=== PATIENT | female | born 1985 | race Caucasian/White ===

== ENCOUNTER → 2017-04-08 | Outpatient (REF) | payer SELFPAY | LOC: M LAB REF 14:00 | PROVIDERS: ATTEND Physician Assistant Medical | DX: L72.9 Follicular cyst of the skin and subcutaneous tissue, unspecified (principal) ==

== ENCOUNTER → 2021-08-22 | Outpatient (REF) | payer SELFPAY ==
[2021-08-22 19:53] LABS: RSV AMPLIFICATION NEGATIVE (NEGATIVE)
== END ==
LOC: M LAB REF 18:47
PROVIDERS: ATTEND Physician Assistant
DX: R50.9 Fever, unspecified (principal); R05.9 Cough, unspecified

== ENCOUNTER 2022-05-12 17:15 | Emergency (ER) | payer OTHER, SELFPAY ==
[~2022-05-12] VITALS: Ht 157.5 cm; Wt 104.5 kg
[2022-05-12 17:15] VITALS: BP 127/84
[2022-05-12 18:08] LABS: BASO # 0.1 10^3/uL (0.0-0.2); BASO % 0.4 % (0.0-1.0); EOS # 0.3 10^3/uL (0.0-0.5); EOS % 1.4 % (0.0-3.0); HEMATOCRIT 37.7 % (36.0-47.0); HEMOGLOBIN 11.4 g/dl (12.0-15.5); LYMPH # 1.6 10^3/uL (1.5-5.0); LYMPH % 7.7 % (24.0-44.0); MEAN CORPUSCULAR HEMOGLOBIN 22.3 pg (27.0-33.0); MEAN CORPUSCULAR HGB CONC 30.2 g/dl (32.0-36.5); MEAN CORPUSCULAR VOLUME 73.6 fl (80.0-96.0); MONO % 4.8 % (2.0-8.0); NEUTROPHILS # 17.2 10^3/uL (1.5-8.5); NEUTROPHILS % 85.1 % (36.0-66.0); PLATELET COUNT, AUTOMATED 405 10^3/uL (150-450); RED BLOOD COUNT 5.12 10^6/uL (4.00-5.40); WHITE BLOOD COUNT 20.2 10^3/uL (4.0-10.0)
[2022-05-12 18:24] LABS: HCG, SERUM QUALITATIVE NEGATIVE (NEGATIVE)
[2022-05-12 18:32] LABS: ALBUMIN 3.9 GM/DL (3.2-5.2); ALT/SGPT 24 U/L (12-78); BILIRUBIN,DIRECT < 0.1 MG/DL (0.0-0.2); BILIRUBIN,TOTAL 0.3 MG/DL (0.2-1.0); BLOOD UREA NITROGEN 10 MG/DL (7-18); CALCIUM LEVEL 9.2 MG/DL (8.5-10.1); CARBON DIOXIDE LEVEL 21 MEQ/L (21-32); CHLORIDE LEVEL 108 MEQ/L (98-107); CREATININE FOR GFR 0.83 MG/DL (0.55-1.30); GLOMERULAR FILTRATION RATE > 60.0 (>60); GLUCOSE, FASTING 120 MG/DL (70-100); LIPASE 152 U/L (73-393); POTASSIUM SERUM 3.8 MEQ/L (3.5-5.1); SODIUM LEVEL 139 MEQ/L (136-145); TOTAL PROTEIN 7.5 GM/DL (6.4-8.2)
[2022-05-12] MEDS ORDERED: KETOROLAC 30 MG/ML 1ML VIAL IV ONE (19:45)
[2022-05-12] MEDS ORDERED: NS 1,000 ML IV ONE (19:45)
[2022-05-12] MEDS ORDERED: ONDANSETRON 4MG 2ML VIAL IV ONE (19:45)
[2022-05-12] MEDS ORDERED: ISOVUE-370 76% 100ML VIAL As Ordered ONE (19:46)
[2022-05-12] MEDS ORDERED: cefTRIAXone SOD 2 GM in D5W MINI-BAG PLUS 50 ML IV ONE (22:05)
[2022-05-12] MEDS ORDERED: ONDA4TAB6 PO (22:07)
[2022-05-12] MEDS ORDERED: AMOX875T2 PO (22:07)
[2022-05-13] MEDS ORDERED: ACET-907 PO (11:42)
[2022-05-13] MEDS ORDERED: AMOX875T2 PO (11:42)
[2022-05-13] MEDS ORDERED: ONDA4TAB6 PO (11:42)
== END 2022-05-12 22:54 | disposition home or self-care (01) ==
LOC: M ED 17:15
DX: K37 Unspecified appendicitis (principal); E66.9 Obesity, unspecified; F17.210 Nicotine dependence, cigarettes, uncomplicated; Z88.0 Allergy status to penicillin; Z98.890 Other specified postprocedural states
CPT/HCPCS: 74177; 80048; 80076; 83690; 84703; 85025; 96365; 96375; 99284; J0696; J1885; J2405; Q9967

== ENCOUNTER 2022-05-13 09:40 | Day surgery (SDC) | payer OTHER ==
[~2022-05-13] VITALS: Ht 157.5 cm; Wt 104.5 kg
[~2022-05-13 09:40] MED LIST: AMOX875T2 PO; ONDA4TAB6 PO
[2022-05-13 10:20] LABS: BASO % 0.2 % (0.0-1.0); EOS # 0.1 10^3/uL (0.0-0.5); EOS % 0.3 % (0.0-3.0); HEMATOCRIT 35.5 % (36.0-47.0); LYMPH # 1.5 10^3/uL (1.5-5.0); MEAN CORPUSCULAR VOLUME 74.1 fl (80.0-96.0); MONO # 1.1 10^3/uL (0.0-0.8); MONO % 5.9 % (2.0-8.0); NEUTROPHILS # 15.5 10^3/uL (1.5-8.5); NEUTROPHILS % 84.9 % (36.0-66.0); PLATELET COUNT, AUTOMATED 374 10^3/uL (150-450); RED BLOOD COUNT 4.79 10^6/uL (4.00-5.40); WHITE BLOOD COUNT 18.3 10^3/uL (4.0-10.0)
[2022-05-13] MEDS ORDERED: MORPHINE 2 MG/ML 1ML VIAL IV ONE (10:20)
[2022-05-13] MEDS ORDERED: ONDANSETRON 4MG 2ML VIAL IV ONE (10:20)
[2022-05-13] MEDS ORDERED: PIPERACILLIN/TAZOBACTAM SOD 3.375 GM in D5W MINI-BAG PLUS 50 ML IV ONE (10:20)
[2022-05-13] MEDS ORDERED: NS 1,000 ML IV ONE (10:20)
[2022-05-13 10:47] LABS: ALBUMIN 3.6 GM/DL (3.2-5.2); BILIRUBIN,DIRECT 0.3 MG/DL (0.0-0.2); BILIRUBIN,TOTAL 0.5 MG/DL (0.2-1.0); TOTAL PROTEIN 7.3 GM/DL (6.4-8.2)
[2022-05-13 11:04] LABS: RSV AMPLIFICATION NEGATIVE (NEGATIVE)
[2022-05-13] MEDS ORDERED: AMOX875T2 PO (11:42)
[2022-05-13] MEDS ORDERED: ACET-907 PO (11:42)
[2022-05-13] MEDS ORDERED: ONDA4TAB6 PO (11:42)
[2022-05-13] MEDS ORDERED: HOME MED LIST COMPLETE! XX SCH (11:45)
[2022-05-13 11:49] LABS: BLOOD UREA NITROGEN 7 MG/DL (7-18); CALCIUM LEVEL 8.7 MG/DL (8.5-10.1); CARBON DIOXIDE LEVEL 23 MEQ/L (21-32); CHLORIDE LEVEL 107 MEQ/L (98-107); CREATININE FOR GFR 0.71 MG/DL (0.55-1.30); GLOMERULAR FILTRATION RATE > 60.0 (>60); GLUCOSE, FASTING 103 MG/DL (70-100); SODIUM LEVEL 141 MEQ/L (136-145)
[2022-05-13] MEDS ORDERED: BUPIVACAINE HCL 0.25% 10ML VIAL As Ordered ONE (12:57)
[2022-05-13] MEDS ORDERED: LIDOCAINE 1% SDV 30ML VIAL As Ordered ONE (12:57)
[2022-05-13] MEDS ORDERED: BUPIVACAINE HCL 0.25% 30ML VIAL As Ordered ONE (12:58)
[2022-05-13] MEDS ORDERED: KETOROLAC 30 MG/ML 1ML VIAL IV ONE (14:45)
[2022-05-13 17:00] VITALS: BP 112/57
[2022-05-13] MEDS ORDERED: propofoL 200 MG/20 ML VIAL As Ordered ONE (17:40)
[2022-05-13] MEDS ORDERED: ONDANSETRON 4MG 2ML VIAL As Ordered ONE (17:41)
[2022-05-13] MEDS ORDERED: ROCURONIUM BROMIDE 50 MG/5 ML VIAL As Ordered ONE ×2 (17:41→18:58)
[2022-05-13] MEDS ORDERED: fentaNYL 100 MCG/2 ML INJECTION As Ordered ONE ×2 (17:41→18:36)
[2022-05-13] MEDS ORDERED: dexameTHASONE 4 MG/ML 1ML VIAL (J1100 PER 1MG) As Ordered ONE (17:41)
[2022-05-13] MEDS ORDERED: MIDAZOLAM INJ 2MG/2ML VIAL (J2250 PER 1MG) As Ordered ONE (17:41)
[2022-05-13] MEDS ORDERED: ZOSYN 3.375GM VIAL As Ordered ONE (18:14)
[2022-05-13] MEDS ORDERED: ACETAMINOPHEN 1000MG 100ML IV BTL (OFIRMEV) (J0131 PER 10MG) As Ordered ONE (19:18)
[2022-05-13] MEDS ORDERED: SUGAMMADEX SODIUM 500 MG/5 ML VIAL (BRIDION) As Ordered ONE (19:29)
[2022-05-13] MEDS ORDERED: LR 1,000 ML IV SCH ×2 (19:45→20:30)
[2022-05-13] MEDS ORDERED: ONDANSETRON 4MG 2ML VIAL IV PRN ×2 (19:45→20:30)
[2022-05-13] MEDS ORDERED: PERCOCET 5MG/325MG TAB PO PRN ×2 (19:45)
[2022-05-13] MEDS ORDERED: ACETAMINOPHEN TAB 650MG DOSE (2X325MG) PO PRN (19:45)
[2022-05-13] MEDS ORDERED: fentaNYL 100 MCG/2 ML INJECTION IV PRN (20:30)
[2022-05-13] MEDS ORDERED: oxyCODONE 5MG TAB PO PRN (20:30)
[2022-05-13 21:08] VITALS: BP 141/89
[2022-05-13] MEDS: PIPERACILLIN/TAZOBACTAM SOD 3.375 GM in D5W MINI-BAG PLUS 50 ML IV SCH (21:28)
[2022-05-13] MEDS: KETOROLAC 30 MG/ML 1ML VIAL IV SCH (21:28)
[2022-05-13 21:30] VITALS: BP 105/45
[2022-05-13 22:00] VITALS: BP 107/48
[2022-05-13 23:00] VITALS: BP 106/49
[2022-05-14] VITALS: BP 112/71
[2022-05-14 01:00] VITALS: BP 114/55
[2022-05-14] MEDS: PIPERACILLIN/TAZOBACTAM SOD 3.375 GM in D5W MINI-BAG PLUS 50 ML IV SCH ×4 (03:09→20:45)
[2022-05-14] MEDS: KETOROLAC 30 MG/ML 1ML VIAL IV SCH ×4 (03:10→20:45)
[2022-05-14 05:41] VITALS: BP 111/56
[2022-05-14 06:28] LABS: BASO % 0.1 % (0.0-1.0); HEMATOCRIT 32.5 % (36.0-47.0); HEMOGLOBIN 9.6 g/dl (12.0-15.5); LYMPH # 0.7 10^3/uL (1.5-5.0); LYMPH % 3.6 % (24.0-44.0); MEAN CORPUSCULAR HEMOGLOBIN 21.9 pg (27.0-33.0); MEAN CORPUSCULAR HGB CONC 29.5 g/dl (32.0-36.5); MEAN CORPUSCULAR VOLUME 74.2 fl (80.0-96.0); MONO # 0.7 10^3/uL (0.0-0.8); MONO % 3.7 % (2.0-8.0); NEUTROPHILS # 18.6 10^3/uL (1.5-8.5); NEUTROPHILS % 92.1 % (36.0-66.0); PLATELET COUNT, AUTOMATED 318 10^3/uL (150-450); RED BLOOD COUNT 4.38 10^6/uL (4.00-5.40); WHITE BLOOD COUNT 20.2 10^3/uL (4.0-10.0)
[2022-05-14 06:59] LABS: BLOOD UREA NITROGEN 8 MG/DL (7-18); CALCIUM LEVEL 8.6 MG/DL (8.5-10.1); CARBON DIOXIDE LEVEL 24 MEQ/L (21-32); CHLORIDE LEVEL 105 MEQ/L (98-107); CREATININE FOR GFR 0.69 MG/DL (0.55-1.30); GLOMERULAR FILTRATION RATE > 60.0 (>60); GLUCOSE, FASTING 125 MG/DL (70-100); POTASSIUM SERUM 4.1 MEQ/L (3.5-5.1); SODIUM LEVEL 136 MEQ/L (136-145)
[2022-05-14] MEDS: PANTOPRAZOLE 40MG VIAL IV SCH (08:15)
[2022-05-14] MEDS: ENOXAPARIN 40MG/0.4ML SYRINGE (J1650 PER 10MG) SC SCH (08:15)
[2022-05-14 22:00] VITALS: BP 115/61
[2022-05-15] MEDS: PIPERACILLIN/TAZOBACTAM SOD 3.375 GM in D5W MINI-BAG PLUS 50 ML IV SCH ×2 (02:05→10:09)
[2022-05-15] MEDS: KETOROLAC 30 MG/ML 1ML VIAL IV SCH ×2 (02:05→10:10)
[2022-05-15 06:00] VITALS: BP 96/49
[2022-05-15] MEDS ORDERED: LEVO750T13 PO (09:56)
[2022-05-15] MEDS ORDERED: METR-265 PO (09:57)
[2022-05-15] MEDS ORDERED: PERCOCET PO (09:58)
[2022-05-15] MEDS: PANTOPRAZOLE 40MG VIAL IV SCH (10:09)
[2022-05-15] MEDS: ENOXAPARIN 40MG/0.4ML SYRINGE (J1650 PER 10MG) SC SCH (10:11)
== END 2022-05-15 11:35 | disposition home or self-care (01) ==
LOC: M ED 09:40 → M SDC 11:38 → ENRESERV 15:31 → M MS5PR 16:55 → M SDC 05-15 11:35
PROVIDERS: ATTEND Surgery
DX: K35.32 Acute appendicitis with perforation, localized peritonitis, and gangrene, without abscess (principal); R11.2 Nausea with vomiting, unspecified; E66.01 Morbid (severe) obesity due to excess calories; Z68.41 Body mass index [BMI] 40.0-44.9, adult; F17.210 Nicotine dependence, cigarettes, uncomplicated; Z88.0 Allergy status to penicillin
CPT/HCPCS: 36415; 44970; 74176; 80048; 80076; 83605; 85025; 87040; 87631; 88304; 96365; 96366; 96372; 96375; 96376; 99284; C9113; J0131; J1100; J1650; J1885; J2250; J2270; J2405; J2543; J3010

== ENCOUNTER → 2022-12-12 | Outpatient (REF) | payer OTHER ==
[~2022-12-12] MED LIST changes: +ACET-907 PO; +LEVO1TAB40 PO; +METR-265 PO; +PERCOCET PO
[2022-12-12 17:18] LABS: BASO # 0.1 10^3/uL (0.0-0.2); BASO % 0.8 % (0.0-1.0); EOS # 0.3 10^3/uL (0.0-0.5); EOS % 3.6 % (0.0-3.0); HEMATOCRIT 42.9 % (36.0-47.0); HEMOGLOBIN 13.3 g/dl (12.0-15.5); LYMPH # 1.9 10^3/uL (1.5-5.0); LYMPH % 24.5 % (24.0-44.0); MEAN CORPUSCULAR HEMOGLOBIN 25.9 pg (27.0-33.0); MEAN CORPUSCULAR VOLUME 83.5 fl (80.0-96.0); MONO # 0.5 10^3/uL (0.0-0.8); NEUTROPHILS % 64.5 % (36.0-66.0); PLATELET COUNT, AUTOMATED 351 10^3/uL (150-450); RED BLOOD COUNT 5.14 10^6/uL (4.00-5.40); WHITE BLOOD COUNT 7.8 10^3/uL (4.0-10.0)
[2022-12-12 17:44] LABS: TOTAL IRON BINDING CAPACITY 415 UG/DL (250-425)
[2022-12-12 17:46] LABS: IRON (FE) 31 UG/DL (50-170); PERCENT SATURATION 7.5 % (13.2-45.0)
[2022-12-12 17:47] LABS: ALBUMIN 3.8 G/DL (3.2-5.2); ALKALINE PHOSPHATASE 70 U/L (46-116); ALT/SGPT 31 U/L (7.0-40); AST/SGOT 27 U/L (<34); BILIRUBIN,TOTAL 0.3 MG/DL (0.3-1.2); BLOOD UREA NITROGEN 6 MG/DL (9-23); CALCIUM LEVEL 9.1 MG/DL (8.5-10.1); CARBON DIOXIDE LEVEL 24 MMOL/L (20-31); CHLORIDE LEVEL 102 MMOL/L (98-107); CHOLESTEROL LEVEL 208 MG/DL (<200); CHOLESTEROL RISK RATIO 4.61 (<5); CREATININE FOR GFR 0.61 MG/DL (0.55-1.30); FERRITIN 7.1 NG/ML (7.3-270.7); FOLATE 10.1 NG/ML (>5.4); GLOMERULAR FILTRATION RATE > 60.0 (>60); GLUCOSE, FASTING 88 MG/DL (60-100); HDL CHOLESTEROL 45.1 MG/DL (>40); LDL CHOLESTEROL 120.3 MG/DL (<100); NON-HDL-C 163 MG/DL; POTASSIUM SERUM 4.5 MMOL/L (3.5-5.1); SODIUM LEVEL 135 MMOL/L (136-145); THYROID STIMULATING HORMONE 0.968 uIU/ML (0.55-4.78); TOTAL PROTEIN 7.2 G/DL (5.7-8.2); TRIGLYCERIDES LEVEL 213 MG/DL (<150); VITAMIN B12 LEVEL 249 PG/ML (211-911)
[2022-12-12 19:08] LABS: HIV 1&2 SCREEN CENTAUR NEGATIVE (NEGATIVE)
== END ==
LOC: M LAB REF 15:33
PROVIDERS: ATTEND Physician Assistant
DX: Z11.59 Encounter for screening for other viral diseases (principal); E66.9 Obesity, unspecified; Z91.89 Other specified personal risk factors, not elsewhere classified; R45.4 Irritability and anger; Z13.220 Encounter for screening for lipoid disorders; Z13.1 Encounter for screening for diabetes mellitus; Z11.4 Encounter for screening for human immunodeficiency virus [HIV]; D64.9 Anemia, unspecified

== ENCOUNTER → 2023-01-31 | Outpatient (REF) | payer OTHER | LOC: M LAB REF 16:29 | PROVIDERS: ATTEND Physician Assistant | DX: J02.9 Acute pharyngitis, unspecified (principal) ==

== ENCOUNTER → 2023-03-24 | Outpatient (CLI) | payer OTHER | LOC: M WUC 08:44 | PROVIDERS: ATTEND Student in an Organized Health Care Education/Training Program | DX: M79.645 Pain in left finger(s) (principal) ==

== ENCOUNTER → 2023-05-19 | Outpatient (REF) | payer OTHER ==
[2023-05-19 19:03] LABS: HEMATOCRIT 44.7 % (36.0-47.0); HEMOGLOBIN 14.5 g/dl (12.0-15.5); MEAN CORPUSCULAR HEMOGLOBIN 28.7 pg (27.0-33.0); MEAN CORPUSCULAR HGB CONC 32.4 g/dl (32.0-36.5); MEAN CORPUSCULAR VOLUME 88.5 fl (80.0-96.0); PLATELET COUNT, AUTOMATED 255 10^3/uL (150-450); RED BLOOD COUNT 5.05 10^6/uL (4.00-5.40)
[2023-05-19 19:30] LABS: ALBUMIN 3.8 G/DL (3.2-5.2); BLOOD UREA NITROGEN 7 MG/DL (9-23); CALCIUM LEVEL 8.6 MG/DL (8.5-10.1); CARBON DIOXIDE LEVEL 23 MMOL/L (20-31); CHLORIDE LEVEL 106 MMOL/L (98-107); CREATININE FOR GFR 0.52 MG/DL (0.55-1.30); GLOMERULAR FILTRATION RATE > 60.0 (>60); GLUCOSE, FASTING 103 MG/DL (60-100); IRON (FE) 61 UG/DL (50-170); PERCENT SATURATION 16.5 % (13.2-45.0); PHOSPHORUS LEVEL 3.7 MG/DL (2.5-4.9); POTASSIUM SERUM 5.1 MMOL/L (3.5-5.1); SODIUM LEVEL 137 MMOL/L (136-145); TOTAL IRON BINDING CAPACITY 369 UG/DL (250-425)
[2023-05-19 19:31] LABS: FERRITIN 47.9 NG/ML (7.3-270.7)
[2023-05-19 21:03] LABS: ATYPICAL LYMPH 6 % (0-5); EOSINOPHILS 11 % (0-3); LYMPHOCYTES 28 % (16-44); MONOCYTES 6 % (0-5); NEUTROPHILS 49 % (28-66); PLATELET ESTIMATE NORMAL (NORMAL)
== END ==
LOC: M LAB REF 16:34
PROVIDERS: ATTEND Physician Assistant
DX: E61.1 Iron deficiency (principal); E78.1 Pure hyperglyceridemia

== ENCOUNTER 2023-10-05 13:10 | Emergency (ER) | payer OTHER ==
[~2023-10-05] VITALS: Ht 157.5 cm; Wt 110.1 kg
[2023-10-05] MEDS ORDERED: LEXA1TAB PO (13:17)
[2023-10-05 15:34] VITALS: BP 140/72; TEMP 99; O2SAT 98
== END 2023-10-05 16:07 | disposition home or self-care (01) ==
LOC: M ED 13:10
DX: S20.419A Abrasion of unspecified back wall of thorax, initial encounter (principal); S00.83XA Contusion of other part of head, initial encounter; S40.212A Abrasion of left shoulder, initial encounter; S06.0X9A Concussion with loss of consciousness of unspecified duration, initial encounter; W18.30XA Fall on same level, unspecified, initial encounter; W22.09XA Striking against other stationary object, initial encounter; Y92.9 Unspecified place or not applicable; Z88.1 Allergy status to other antibiotic agents

== ENCOUNTER → 2023-10-10 | Outpatient (CLI) | payer OTHER ==
[~2023-10-10] MED LIST changes: +LEXA1TAB PO
== END ==
LOC: M RAD 08:52
PROVIDERS: ATTEND Nurse Practitioner Family
DX: M62.08 Separation of muscle (nontraumatic), other site (principal)

== ENCOUNTER → 2024-05-24 | Outpatient (CLI) | payer OTHER ==
[~2024-05-24] MED LIST changes: +ONDA-282 PO; -ONDA4TAB6 PO
== END ==
LOC: M WHC 08:05
PROVIDERS: ATTEND Nurse Practitioner Family
DX: Z12.31 Encounter for screening mammogram for malignant neoplasm of breast (principal)

== ENCOUNTER → 2024-07-01 | Outpatient (REF) | payer OTHER ==
[2024-07-04 13:54] LABS: HPV APTIMA Not Detected (Not Detected)
== END ==
LOC: M LAB REF 16:33
PROVIDERS: ATTEND Physician Assistant
DX: Z12.4 Encounter for screening for malignant neoplasm of cervix (principal); Z01.419 Encounter for gynecological examination (general) (routine) without abnormal findings; Z11.3 Encounter for screening for infections with a predominantly sexual mode of transmission

== ENCOUNTER → 2024-07-03 | Outpatient (CLI) | payer OTHER | LOC: M RAD 09:09 | PROVIDERS: ATTEND Physician Assistant | DX: M25.561 Pain in right knee (principal); F17.210 Nicotine dependence, cigarettes, uncomplicated ==

== ENCOUNTER → 2024-08-03 | Outpatient (REF) | payer OTHER | LOC: M LAB REF 19:28 | PROVIDERS: ATTEND Physician Assistant | DX: R50.9 Fever, unspecified (principal) ==

== ENCOUNTER → 2024-12-10 | Outpatient (CLI) | payer OTHER | LOC: M WHC 13:12 | PROVIDERS: ATTEND Physician Assistant | DX: R23.8 Other skin changes (principal); Z15.01 Genetic susceptibility to malignant neoplasm of breast; Z80.3 Family history of malignant neoplasm of breast | CPT/HCPCS: 77065; G0279 ==

== ENCOUNTER → 2025-07-02 | Outpatient (REF) | payer OTHER ==
[2025-07-02 13:31] LABS: ALT/SGPT 46 U/L (7.0-40); AST/SGOT 49 U/L (<34); CALCIUM LEVEL 9.4 MG/DL (8.5-10.1); CARBON DIOXIDE LEVEL 26 MMOL/L (20-31); CHLORIDE LEVEL 100 MMOL/L (98-107); CHOLESTEROL LEVEL 254 MG/DL (<200); CHOLESTEROL RISK RATIO 6.39 (<5); CREATININE FOR GFR 0.48 MG/DL (0.55-1.30); GLOMERULAR FILTRATION RATE > 90.0 (>60); IRON (FE) 56 UG/DL (50-170); NON-HDL-C 214.3 MG/DL; PERCENT SATURATION 16.5 % (13.2-45.0); POTASSIUM SERUM 4.2 MMOL/L (3.5-5.1); SODIUM LEVEL 137 MMOL/L (136-145); TRIGLYCERIDES LEVEL 436 MG/DL (<150)
[2025-07-02 13:33] LABS: BASO # 0.1 10^3/uL (0.0-0.2); BASO % 0.7 % (0.0-1.0); EOS # 0.2 10^3/uL (0.0-0.5); EOS % 2.4 % (0.0-3.0); LYMPH # 1.9 10^3/uL (1.5-5.0); LYMPH % 25.3 % (24.0-44.0); MONO # 0.4 10^3/uL (0.0-0.8); MONO % 5.9 % (2.0-8.0); NEUTROPHILS # 4.8 10^3/uL (1.5-8.5); NEUTROPHILS % 65.2 % (36.0-66.0); PLATELET COUNT, AUTOMATED 280 10^3/uL (150-450); TOTAL 25(OH) VITAMIN D 27.3 NG/ML (20.0-100.0)
[2025-07-02 14:03] LABS: HEPATITIS C VIRUS ABY INDEX < 0.02 INDEX (<0.8)
[2025-07-02 14:38] LABS: ESTIMATED AVERAGE GLUCOSE 315.0 MG/DL (60-110)
== END ==
LOC: M LABWUC 12:18
PROVIDERS: ATTEND Nurse Practitioner Family
DX: E55.9 Vitamin D deficiency, unspecified (principal); Z68.36 Body mass index [BMI] 36.0-36.9, adult; E66.9 Obesity, unspecified; E78.5 Hyperlipidemia, unspecified; E61.1 Iron deficiency; Z20.5 Contact with and (suspected) exposure to viral hepatitis; E87.1 Hypo-osmolality and hyponatremia

== ENCOUNTER → 2025-07-17 | Outpatient (CLI) | payer OTHER ==
[~2025-07-17] MED LIST changes: +PROHANCE 279.3MG/ML 15ML VIAL ONE; +PROHANCE 279.3MG/ML 5ML VIAL ONE
== END ==
LOC: M PLAIMG 15:08
PROVIDERS: ATTEND Physician Assistant
DX: Z15.01 Genetic susceptibility to malignant neoplasm of breast (principal); R23.8 Other skin changes; Z80.3 Family history of malignant neoplasm of breast; R92.8 Other abnormal and inconclusive findings on diagnostic imaging of breast
CPT/HCPCS: A9576; C8908

== ENCOUNTER → 2025-08-13 | Outpatient (CLI) | payer OTHER ==
[~2025-08-13] MED LIST changes: -PROHANCE 279.3MG/ML 15ML VIAL ONE; -PROHANCE 279.3MG/ML 5ML VIAL ONE
== END ==
LOC: M WHC 08:25
PROVIDERS: ATTEND Nurse Practitioner Family
DX: R92.8 Other abnormal and inconclusive findings on diagnostic imaging of breast (principal); R92.1 Mammographic calcification found on diagnostic imaging of breast
CPT/HCPCS: 76642; 77065; G0279

== ENCOUNTER → 2025-10-07 | Outpatient (REF) | payer OTHER ==
[2025-10-07 18:05] LABS: CREATININE, URINE 129.0 MG/DL; MALB URINE SIEMENS 107.0 MG/L; MAU/CREAT RATIO 82.9 MCG/MG (0.0-30.0)
== END ==
LOC: M LAB REF 17:03
PROVIDERS: ATTEND Nurse Practitioner Family
DX: E11.65 Type 2 diabetes mellitus with hyperglycemia (principal)